=== PATIENT | male | born 1950 | race Two or more races ===

== ENCOUNTER 2019-04-16 13:04 | Outpatient (CLI) | payer OTHER | END 2019-04-16 15:29 | disposition home or self-care (01) | LOC: SONOGRAMA 13:04 | DX: E03.8 Other specified hypothyroidism (principal); E21.0 Primary hyperparathyroidism; E04.1 Nontoxic single thyroid nodule ==

== ENCOUNTER 2019-07-08 06:25 | Day surgery (SDC) | payer OTHER ==
[~2019-07-08 06:25] MED LIST: COLESTEROL; ENALAPRIL MALEAT5 MG; PROSTATA; TIROSINT88 MCG
[2019-07-08] MEDS ORDERED: KEFLEX500 MG PO (10:30)
[2019-07-08] MEDS ORDERED: ULTRACET PO (10:30)
== END 2019-07-08 18:00 | disposition home or self-care (01) ==
LOC: CIR.AMB 06:25
DX: K40.90 Unilateral inguinal hernia, without obstruction or gangrene, not specified as recurrent (principal)